=== PATIENT | female | born 2005 | race Caucasian/White ===

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

== ENCOUNTER 2024-02-24 17:36 | Emergency (ER) | payer OTHER ==
[~2024-02-24] VITALS: Ht 152.4 cm; Wt 69.6 kg
[~2024-02-24 17:36] MED LIST: DEXT1LOZ11 MM
[2024-02-24 18:27] VITALS: BP 107/68; PULSE 98; RESP 18; TEMP 98.3; O2SAT 97
[2024-02-24 19:06] VITALS: BP 117/66; PULSE 96; RESP 18; TEMP 98.3; O2SAT 97
[2024-02-24] MEDS ORDERED: NAPR-337 PO (19:38)
[2024-02-24] MEDS ORDERED: ONDA-188 PO (19:38)
== END 2024-02-24 20:05 | disposition home or self-care (01) ==
LOC: MED 17:36
DX: G44.209 Tension-type headache, unspecified, not intractable (principal); R11.2 Nausea with vomiting, unspecified; Z79.899 Other long term (current) drug therapy
CPT/HCPCS: 81025; 99283